=== PATIENT | female | born 1955 | race Hispanic/Latino ===

== ENCOUNTER 2019-12-15 12:28 | Outpatient (CLI) | payer MEDICARE ==
--- NOTE | 2019-12-15 14:48 | RAD ---
PA AND LATERAL CHEST: 12/15/19 HISTORY: Contact dermatitis. Heart size and mediastinum are within normal limits. There is some linear interstitial change compati ble with some scarring. There is slight flattening to the hemidiaphragms. No focal infiltrative proce ss. IMPRESSION: Mild chronic appearing lung change. POS: [facility]
== END 2019-12-15 12:29 | disposition home or self-care (01) ==
LOC: BICRAD 12:28
PROVIDERS: ATTEND Internal Medicine Rheumatology
DX: L25.9 Unspecified contact dermatitis, unspecified cause (principal)
CPT/HCPCS: 71046

== ENCOUNTER 2021-10-24 10:20 | Outpatient (CLI) | payer MEDICARE, OTHER | END 2021-10-24 10:21 | disposition home or self-care (01) | LOC: BICMAMMO 10:20 | PROVIDERS: ATTEND Family Medicine | DX: Z12.31 Encounter for screening mammogram for malignant neoplasm of breast (principal); M81.0 Age-related osteoporosis without current pathological fracture; M85.80 Other specified disorders of bone density and structure, unspecified site; Z98.890 Other specified postprocedural states | CPT/HCPCS: 77063; 77067; 77080 ==